=== PATIENT | male | born 1990 | race Caucasian/White ===

== ENCOUNTER → 2019-11-26 | Outpatient (CLI) | payer BC ==
--- NOTE | 2019-11-26 17:00 | CT ---
EXAMINATION TYPE: CT brain wo con DATE OF EXAM: 11/26/2019 COMPARISON: None HISTORY: dizziness, no injury CT DLP: 978.2 mGycm Automated exposure control for dose reduction was used. Ventricles and sulci appear normal. There is no mass effect nor midline shift. There is no sign of in tracranial hemorrhage. Calvarium is intact. There is no evidence of cerebral edema. IMPRESSION: Normal unenhanced head CT scan.
== END | disposition home or self-care (01) ==
LOC: RADCTMAIN 16:16
PROVIDERS: ATTEND Nurse Practitioner Family
DX: R42 Dizziness and giddiness (principal)
CPT/HCPCS: 70450

== ENCOUNTER → 2019-12-09 | Outpatient (CLI) | payer BC ==
--- NOTE | 2019-12-10 08:06 | US ---
EXAMINATION TYPE: US thyroid st tissue head/neck DATE OF EXAM: 12/09/2019 COMPARISON: NONE CLINICAL HISTORY: F45.8 Feeling of lump in throat. GLAND SIZE: Right Lobe: 4.7 x 1.6 x 1.1 cm Overall Parenchyma: homogenous Left Lobe: 4.4 x 1.7 x 1.2 cm Overall Parenchyma: homogeneous Isthmus Thickness: 0.2 cm NODULES RIGHT: # of nodules measured on right: 0 LEFT: # of nodules measured on left: 0 ISTHMUS: # of nodules measured in the isthmus: 0 Bilateral neck scanned: multiple lymph nodes are see superior to bilateral thyroid. Largest right upp er neck lymph node = 1.8 x 1.6 x 0.6cm. Largest left upper neck lymph node = 1.5 x 1.5 x 0.4cm. Homogeneous normal-sized thyroid without discrete nodules. Technologist identifies prominent bilatera l neck lymph nodes some which appear to have lost normal fatty hilum. IMPRESSION: As above. Possible abnormal adenopathy. Correlate clinically and with lab values, need to further investigate with contrast-enhanced neck CT or MRI should be based on clinical correlation.
== END | disposition home or self-care (01) ==
LOC: RADUSWWP 15:29
DX: F45.8 Other somatoform disorders (principal)
CPT/HCPCS: 76536

== ENCOUNTER → 2019-12-22 | Outpatient (CLI) | payer BC ==
--- NOTE | 2019-12-23 06:53 | CT ---
EXAMINATION TYPE: CT soft tissue neck wo/w con DATE OF EXAM: 12/22/2019 HISTORY: Cervical lymphadenopathy. Pt c/o trouble swallowing. COMPARISON: Ultrasound neck December 09, 2019 CT DLP: 845.20 mGycm. Automated Exposure Control for Dose Reduction was Utilized. TECHNIQUE: CT scan of the neck is performed without and with IV Contrast, patient injected with 100 mL of Isovue 300, axial images are obtained, coronal and sagittal reformatted images are reviewed. FINDINGS: Airway: Some secretions at level of the vallecula otherwise unremarkable. Normal-sized thyroid corres ponds to recent ultrasound. Parotid/submandibular glands: No gross abnormality seen. Carotid/Vascular Structures: No significant abnormality seen. Osseous Structures: No significant abnormalities seen. Other: The parapharyngeal fat spaces are maintained bilaterally. A few prominent lymph nodes througho ut the neck bilaterally correspond to ultrasound. For reference there is 1.1 x 0.8 cm lymph node ante rior to the carotid space posterior to submandibular gland on axial image 78 the level of hyoid bone . No definitive asymmetric greater than 1 cm adenopathy or suspicious focal mass. Patient has little fat. IMPRESSION: No obvious mass or adenopathy. Source of dysphagia not identified.
== END | disposition home or self-care (01) ==
LOC: RADCTMAIN 18:47
PROVIDERS: ATTEND Family Medicine
DX: R59.0 Localized enlarged lymph nodes (principal)
CPT/HCPCS: 70492; Q9967

== ENCOUNTER 2019-12-24 08:11 | Day surgery (SDC) | payer BC ==
[2019-12-22 12:49] VITALS: BMI 18.8
[~2019-12-24 08:11] MED LIST: LACTATED RINGERS 1,000 ML IV SCH
[2019-12-24 08:30] VITALS: TEMP 98.3
[2019-12-24] MEDS ORDERED: LIDOCAINE 1% (10MG/ML) FOR IV START INTRADERMA ONE (08:42)
[2019-12-24] MEDS ORDERED: PROPOFOL 10 MG/ML 20 ML VIAL IV ONE (09:39)
[2019-12-24] MEDS ORDERED: LIDOCAINE 1% INJ 10MG/ML (20 ML MDV) ONE (09:39)
[2019-12-24] MEDS ORDERED: MIDAZOLAM 2 MG/2 ML VIAL ONE (09:39)
--- NOTE | 2019-12-24 09:49 | P.PCN ---
Date of Procedure: 12/24/19 Procedure(s) Performed: BRIEF HISTORY: Patient is a 29-year-old, pleasant, male scheduled for an upper endoscopy for evaluation of globus sensation and intermittent dysphagia for the last 6 months duration. He was started on omeprazole 20 mg daily for a few months ago with some improvement in symptoms PROCEDURE PERFORMED: Esophagogastroduodenoscopy with biopsy. PREOPERATIVE DIAGNOSIS: Intermittent dysphagia and globus pharyngeus of 6 months duration.. IV sedation per anesthesia. PROCEDURE: After informed consent was obtained, the patient was brought into the endoscopy unit. IV sedation was administered by Anesthesia under continuous monitoring. Initially the Olympus GIF-140 video endoscope was inserted into the mouth. Esophagus intubated without any difficulty. It was gradually advanced into the stomach and duodenum and carefully examined. The bulb and the second part of the duodenum appeared normal. The scope at this time was withdrawn to the stomach, adequately insufflated with air, and upon careful examination, mucosa of the antrum had patchy areas of erythema which was biopsied. The, body, cardia and the fundus appeared normal. The scope was then withdrawn into the esophagus. Small sliding type hiatal hernia noted. The GE junction was located at 39 cm from the incisors. The esophagus appeared normal. There were no erosions or ulcerations seen , biopsies were done from the distal esophagus and the patient tolerated the procedure well. IMPRESSION: 1. Small hiatal hernia but no evidence of esophagitis or esophageal stricture. 2. Mild antral gastritis. RECOMMENDATIONS: The findings of this examination were discussed with the patient as well as his family. He was advised to follow with the biopsy results. He will continue on omeprazole 20 mg daily and follow antireflux measures.
[2019-12-24 10:11] VITALS: RESP 20
[2019-12-24 10:13] VITALS: BP 120/81; PULSE 79
== END 2019-12-24 10:26 | disposition home or self-care (01) ==
LOC: ORWHC2ENDO 08:11
PROVIDERS: ATTEND Internal Medicine Gastroenterology
DX: K29.50 Unspecified chronic gastritis without bleeding (principal); K44.9 Diaphragmatic hernia without obstruction or gangrene; K21.9 Gastro-esophageal reflux disease without esophagitis; F41.9 Anxiety disorder, unspecified; Z79.899 Other long term (current) drug therapy
CPT/HCPCS: 88305; 43239; J2250; J2001; J2704

== ENCOUNTER 2020-05-08 18:45 | Observation (INO) | payer BC, OTHER ==
--- NOTE | 2020-05-08 19:11 | ED ---
General Adult HPI - General Chief complaint: Wound/Laceration Stated complaint: arm lac Time Seen by Provider: 05/08/20 18:50 Source: patient, RN notes reviewed Mode of arrival: ambulatory Limitations: no limitations - History of Present Illness Initial comments: Patient is a pleasant 30-year-old male presenting to the emergency Department with arm laceration. Incident occurred less than half an hour prior to arrival. Patient states he was moving stuff and fell into a picture frame. Patient then experienced heavy bleeding from his right arm. Patient did call 911. Patient had bandages placed by EMS but refused treatment by EMS. Patient states his girlfriend drove him here. Last tetanus immunization was around 2012. Patient was sweaty and near syncopal on arrival. Patient states he did lose a lot of blood and there was some squirting from his arm. No other area of injury or concern. No alcohol or street drug use. Patient has history of distant drug use. - Related Data Home Medications Medication Instructions Recorded Confirmed Omeprazole 20 mg PO HS 12/22/19 12/24/19 Allergies Allergy/AdvReac Type Severity Reaction Status Date / Time No Known Allergies Allergy Verified 05/08/20 18:57 Review of Systems ROS Statement: Those systems with pertinent positive or pertinent negative responses have been documented in the HPI. ROS Other: All systems not noted in ROS Statement are negative. Constitutional: Denies: fever Eyes: Denies: eye pain ENT: Denies: ear pain Respiratory: Denies: cough Cardiovascular: Denies: chest pain Endocrine: Denies: fatigue Gastrointestinal: Denies: abdominal pain Genitourinary: Denies: dysuria Musculoskeletal: Denies: back pain Skin: Reports: as per HPI Neurological: Denies: weakness Past Medical History Past Medical History: No Reported History History of Any Multi-Drug Resistant Organisms: None Reported Past Surgical History: No Surgical Hx Reported Additional Past Surgical History / Comment(s): EGD Past Psychological History: No Psychological Hx Reported Smoking Status: Current every day smoker Past Alcohol Use History: None Reported Past Drug Use History: Marijuana General Exam Limitations: no limitations General appearance: alert Head exam: Present: atraumatic, normocephalic Eye exam: Present: normal appearance Neck exam: Present: normal inspection. Absent: tenderness Respiratory exam: Present: normal lung sounds bilaterally Cardiovascular Exam: Present: regular rate, normal rhythm Expanded Peripheral pulses: 1+: Radial (R) (Difficult to examine secondary to tourniquet), 2+: Radial (L) GI/Abdominal exam: Present: soft. Absent: tenderness Extremities exam: Present: other (Patient has tourniquet on his left upper arm, above the antecubital fossa. Patient has laceration on the volar/ulnar side of the antecubital fossa just distal to the antecubital fossa. Laceration ap proximate 1.5 cm. There is heavy oozing with mild pulsatile spray) Neurological exam: Present: alert Psychiatric exam: Present: normal affect, normal mood Skin exam: Present: diaphoretic, other (Laceration) Course Vital Signs 05/08/20 18:47 Temperature 98 F Pulse Rate 71 Respiratory 18 Rate Blood Pressure 97/73 O2 Sat by Pulse 100 Oximetry - Reevaluation(s) Reevaluation #1: 05/08/20 19:11 Case was discussed with Dr. Foy who will come in to evaluate. 19:27 Tourniquet released briefly with continued moderate to heavy bleeding. Tourniquet replaced. 05/08/20 20:11 Dr. foy is present and taking patient to or. Medical Decision Making - Medical Decision Making Patient had tourniquet applied at home. Bandages and tourniquet removed showing moderate to heavy active bleeding. Small laceration. New tourniquet placed in the emergency department. - Lab Data Result diagrams: 05/08/20 19:11 05/08/20 19:11 Lab Results 05/08/20 05/08/20 05/08/20 Range/Units 19:11 19:11 19:11 WBC 13.4 H (3.8-10.6) k/uL RBC 4.82 (4.30-5.90) m/uL Hgb 15.0 (13.0-17.5) gm/dL Hct 44.5 (39.0-53.0) % MCV 92.3 (80.0-100.0) fL MCH 31.1 (25.0-35.0) pg MCHC 33.7 (31.0-37.0) g/dL RDW 12.5 (11.5-15.5) % Plt Count 264 (150-450) k/uL MPV 8.5 Neutrophils % 51 % Lymphocytes % 39 % Monocytes % 6 % Eosinophils % 2 % Basophils % 1 % Neutrophils # 6.8 (1.3-7.7) k/uL Lymphocytes # 5.2 H (1.0-4.8) k/uL Monocytes # 0.7 (0-1.0) k/uL Eosinophils # 0.3 (0-0.7) k/uL Basophils # 0.1 (0-0.2) k/uL Manual Slide Review Performed RBC Morphology Normal PT 10.2 (9.0-12.0) sec INR 0.9 (<1.2) APTT 24.0 (22.0-30.0) sec Sodium 137 (137-145) mmol/L Potassium 3.9 (3.5-5.1) mmol/L Chloride 106 (98-107) mmol/L Carbon Dioxide 22 (22-30) mmol/L Anion Gap 9 mmol/L BUN 14 (9-20) mg/dL Creatinine 0.96 (0.66-1.25) mg/dL Est GFR (CKD-EPI)AfAm >90 (>60 ml/min/1.73 sqM) Est GFR (CKD-EPI)NonAf >90 (>60 ml/min/1.73 sqM) Glucose 147 H (74-99) mg/dL Calcium 10.0 (8.4-10.2) mg/dL Total Bilirubin 0.9 (0.2-1.3) mg/dL AST 26 (17-59) U/L ALT 17 (4-49) U/L Alkaline Phosphatase 86 (38-126) U/L Total Protein 7.7 (6.3-8.2) g/dL Albumin 4.9 (3.5-5.0) g/dL Serum Alcohol <10 mg/dL Blood Type Recheck Bld Type Recheck Status Spec Expiration Date 05/08/20 Range/Units 19:39 WBC (3.8-10.6) k/uL RBC (4.30-5.90) m/uL Hgb (13.0-17.5) gm/dL Hct (39.0-53.0) % MCV (80.0-100.0) fL MCH (25.0-35.0) pg MCHC (31.0-37.0) g/dL RDW (11.5-15.5) % Plt Count (150-450) k/uL MPV Neutrophils % % Lymphocytes % % Monocytes % % Eosinophils % % Basophils % % Neutrophils # (1.3-7.7) k/uL Lymphocytes # (1.0-4.8) k/uL Monocytes # (0-1.0) k/uL Eosinophils # (0-0.7) k/uL Basophils # (0-0.2) k/uL Manual Slide Review RBC Morphology PT (9.0-12.0) sec INR (<1.2) APTT (22.0-30.0) sec Sodium (137-145) mmol/L Potassium (3.5-5.1) mmol/L Chloride (98-107) mmol/L Carbon Dioxide (22-30) mmol/L Anion Gap mmol/L BUN (9-20) mg/dL Creatinine (0.66-1.25) mg/dL Est GFR (CKD-EPI)AfAm (>60 ml/min/1.73 sqM) Est GFR (CKD-EPI)NonAf (>60 ml/min/1.73 sqM) Glucose (74-99) mg/dL Calcium (8.4-10.2) mg/dL Total Bilirubin (0.2-1.3) mg/dL AST (17-59) U/L ALT (4-49) U/L Alkaline Phosphatase (38-126) U/L Total Protein (6.3-8.2) g/dL Albumin (3.5-5.0) g/dL Serum Alcohol mg/dL Blood Type Recheck No Previous Record Bld Type Recheck Status CABO Indicated Spec Expiration Date 05/11/20202310 Disposition Clinical Impression: Laceration of arm Disposition: ADMITTED IP TO THIS HOSP Is patient prescribed a controlled substance at d/c from ED?: No Referrals: Gato Billy MD [Primary Care Provider] - 1-2 days Decision Time: 20:12
[2020-05-08] MEDS ORDERED: DIPH,PERTUSS(ACELL),TET PED 0.5 ML SYRINGE IM ONE (19:14)
[2020-05-08] MEDS ORDERED: LIDOCAINE 1% INJ 10MG/ML (20 ML MDV) SQ ONE (19:15)
[2020-05-08 19:25] LABS: Basophils # (A) 0.1 k/uL (0-0.2); Basophils % (A) 1 %; Eosinophils # (A) 0.3 k/uL (0-0.7); Eosinophils % (A) 2 %; HCT 44.5 % (39.0-53.0); Lymphocytes # (A) 5.2 k/uL (1.0-4.8); Lymphocytes % (A) 39 %; MCH 31.1 pg (25.0-35.0); MCHC 33.7 g/dL (31.0-37.0); MCV 92.3 fL (80.0-100.0); Mean Platelet Volume 8.5; Monocytes # (A) 0.7 k/uL (0-1.0); Monocytes % (A) 6 %; Neutrophils # (A) 6.8 k/uL (1.3-7.7); Neutrophils % (A) 51 %; Platelet Count 264 k/uL (150-450); RBC 4.82 m/uL (4.30-5.90); RDW 12.5 % (11.5-15.5); WBC 13.4 k/uL (3.8-10.6)
[2020-05-08] MEDS ORDERED: DIPH,PERTUS(ACELL)TETVAC-LF 0.5 ML VIAL IM ONE (19:25)
[2020-05-08] MEDS ORDERED: SODIUM CHLORIDE 0.9% 1,000 ML IV STA (19:28)
[2020-05-08 19:41] LABS: ALT 17 U/L (4-49); AST 26 U/L (17-59); African American GFR (CKD) >90 (>60 ml/min/1.73 sqM); Albumin 4.9 g/dL (3.5-5.0); Alcohol <10 mg/dL; Alkaline Phosphatase 86 U/L (38-126); Anion Gap 9 mmol/L; Blood Urea Nitrogen 14 mg/dL (9-20); Carbon Dioxide 22 mmol/L (22-30); Chloride 106 mmol/L (98-107); Glucose 147 mg/dL (74-99); Non-African American GFR(CKD) >90 (>60 ml/min/1.73 sqM); Potassium 3.9 mmol/L (3.5-5.1); Sodium 137 mmol/L (137-145); Total Bilirubin 0.9 mg/dL (0.2-1.3); Total Protein 7.7 g/dL (6.3-8.2)
[2020-05-08 19:51] LABS: INR 0.9 (<1.2); Prothrombin Time 10.2 sec (9.0-12.0)
--- NOTE | 2020-05-08 20:09 | XR ---
RESULT: HISTORY: lac TECHNIQUE: 2 views of the right forearm were obtained. COMPARISON: None. FINDINGS: There is no acute fracture or dislocation. The visualized joint spaces are preserved. There is soft t issue wound about the medial aspect of the right proximal forearm. No radiopaque foreign body. IMPRESSION: Soft tissue wound/laceration about the right proximal forearm. No acute osseous abnormality.
[2020-05-08] MEDS ORDERED: NALOXONE 0.4 MG/ML 1 ML VIAL IV PRN ×2 (20:12→22:24)
--- NOTE | 2020-05-08 20:45 | P.GSHP ---
History of Present Illness H&P Date: 05/08/20 Chief Complaint: right forearm injury 30-year-old gentleman presented to the emergency department after a slip and fall and injury to his right forearm from what he believes was a small picture frame. He states a glass shattered onto his arm and he noticed pulsatile bleeding after that point. He states blood was all over his clothes and a puddle of blood was noticed in his house. He then called 911 and was taken to the emergency department. Upon evaluation in the emergency department per the ER physician he had pulsatile bleeding from a puncture in the medial aspect of his right forearm. They could not see where was bleeding from, and there was an expanding hematoma so they placed a tourniquet which stopped the bleeding. When he arrived to the emergency department he was moving all extremities and had sensation in his fingers and hands. Currently he states his hand is numb secondary to the tourniquet which has been on for 60 minutes. He denies any other issues at this time states that he did not have any other injuries with his fall and he did not hit his head. He denies any fevers, chills, chest pain or shortness of breath. - Review of Systems All systems: negative (What is mentioned in HPI past medical history) Past Medical History Past Medical History: No Reported History Additional Past Medical History / Comment(s): anxiety, abdominal pain History of Any Multi-Drug Resistant Organisms: None Reported Past Surgical History: No Surgical Hx Reported Additional Past Surgical History / Comment(s): EGD Past Psychological History: No Psychological Hx Reported Smoking Status: Current every day smoker Past Alcohol Use History: None Reported Past Drug Use History: Marijuana Medications and Allergies Home Medications and Allergies Comment(s): medical marijuana for anxiety and abdominal pain Home Medications Medication Instructions Recorded Confirmed Type Omeprazole 20 mg PO HS 12/22/19 12/24/19 History Allergies Allergy/AdvReac Type Severity Reaction Status Date / Time No Known Allergies Allergy Verified 05/08/20 18:57 Surgical - Exam Vital Signs Temp Pulse Resp BP Pulse Ox 98 F 71 18 97/73 100 05/08/20 18:47 05/08/20 18:47 05/08/20 18:47 05/08/20 18:47 05/08/20 18:47 Tourniquet removed and vascular exam was performed demonstrating pulsatile mass at the medial aspect of his right forearm. Positive tenderness to palpation. Hematoma is noted which according to the emergency department was expanding. Palpable radial and ulnar pulses. Good capillary refill. Sensation is intact. Motor function intact with pain. - General well developed, well nourished, moderate distress, moderate pain - Eyes PERRL, normal ocular movement - ENT normal pinna, normal nares - Neck no masses - Respiratory normal expansion, normal respiratory effort, clear to auscultation - Cardiovascular Rhythm: regular - Abdomen Abdomen: soft, non tender - Integumentary no rash, no growths - Neurologic normal coordination, normal sensation - Psychiatric oriented to time, oriented to person, oriented to place, speech is normal Results - Labs 05/08/20 19:11 05/08/20 19:11 Abnormal Lab Results - Last 24 Hours (Table) 05/08/20 05/08/20 Range/Units 19:11 19:11 WBC 13.4 H (3.8-10.6) k/uL Lymphocytes # 5.2 H (1.0-4.8) k/uL Glucose 147 H (74-99) mg/dL Diabetes panel 05/08/20 Range/Units 19:11 Sodium 137 (137-145) mmol/L Potassium 3.9 (3.5-5.1) mmol/L Chloride 106 (98-107) mmol/L Carbon Dioxide 22 (22-30) mmol/L BUN 14 (9-20) mg/dL Creatinine 0.96 (0.66-1.25) mg/dL Glucose 147 H (74-99) mg/dL Calcium 10.0 (8.4-10.2) mg/dL AST 26 (17-59) U/L ALT 17 (4-49) U/L Alkaline Phosphatase 86 (38-126) U/L Total Protein 7.7 (6.3-8.2) g/dL Albumin 4.9 (3.5-5.0) g/dL Calcium panel 05/08/20 Range/Units 19:11 Calcium 10.0 (8.4-10.2) mg/dL Albumin 4.9 (3.5-5.0) g/dL Pituitary panel 05/08/20 Range/Units 19:11 Sodium 137 (137-145) mmol/L Potassium 3.9 (3.5-5.1) mmol/L Chloride 106 (98-107) mmol/L Carbon Dioxide 22 (22-30) mmol/L BUN 14 (9-20) mg/dL Creatinine 0.96 (0.66-1.25) mg/dL Glucose 147 H (74-99) mg/dL Calcium 10.0 (8.4-10.2) mg/dL Adrenal panel 05/08/20 Range/Units 19:11 Sodium 137 (137-145) mmol/L Potassium 3.9 (3.5-5.1) mmol/L Chloride 106 (98-107) mmol/L Carbon Dioxide 22 (22-30) mmol/L BUN 14 (9-20) mg/dL Creatinine 0.96 (0.66-1.25) mg/dL Glucose 147 H (74-99) mg/dL Calcium 10.0 (8.4-10.2) mg/dL Total Bilirubin 0.9 (0.2-1.3) mg/dL AST 26 (17-59) U/L ALT 17 (4-49) U/L Alkaline Phosphatase 86 (38-126) U/L Total Protein 7.7 (6.3-8.2) g/dL Albumin 4.9 (3.5-5.0) g/dL Assessment and Plan Assessment: 1. Acute right forearm puncture with arterial injury 2. Expanding right forearm hematoma 3. Chronic abdominal pain 4. Marijuana use Plan: To OR for exploration and artery repair.
[2020-05-08] MEDS ORDERED: fentaNYL (PF) 50 MCG/ML 2 ML AMP ONE (20:50)
[2020-05-08] MEDS ORDERED: MIDAZOLAM 2 MG/2 ML VIAL ONE (20:50)
[2020-05-08] MEDS ORDERED: DEXAMETHASONE SOD PHOSPHATE 10 MG/ML 1 ML VIAL ONE (20:50)
[2020-05-08] MEDS ORDERED: PROPOFOL 10 MG/ML 20 ML VIAL IV ONE (20:50)
[2020-05-08] MEDS ORDERED: LIDOCAINE 1% INJ 10MG/ML (20 ML MDV) ONE (20:50)
[2020-05-08] MEDS ORDERED: ONDANSETRON 4 MG/2 ML VIAL ONE (20:50)
[2020-05-08] MEDS ORDERED: LACTATED RINGERS 1,000 ML IV ONE (20:56)
[2020-05-08] MEDS ORDERED: SODIUM CHLORIDE 0.9% 50 ML with ceFAZolin 2,000 MG IV ONE ×2 (21:09)
[2020-05-08 22:11] VITALS: RESP 16
[2020-05-08] MEDS ORDERED: HYDROmorphone 0.5 MG/0.5 ML SYRINGE IVP ONE (22:19)
--- NOTE | 2020-05-08 22:22 | P.OP ---
Date of Procedure: 05/08/20 Preoperative Diagnosis: Traumatic laceration right medial forearm Expanding hematoma with arterial injury Postoperative Diagnosis: Traumatic left forearm laceration with muscular arterial hemorrhage Procedure(s) Performed: Right forearm laceration exploration with ligation of muscular arterial branch Hematoma evacuation Wound closure with [place] drain placement Anesthesia: GOOD Surgeon: Esteban Argueta Estimated Blood Loss (ml): 100 Pathology: none sent Condition: stable Disposition: PACU Indications for Procedure: 30-year-old gentleman who presented originally to the emergency department secondary to traumatic injury to his right forearm where he states he fell at his house and a picture glass frame broke and lacerated his forearm. Upon evaluation in the emergency department he had an expanding hematoma and arterial hemorrhage which was controlled with a tourniquet. After evaluation it was determined to explore the wound for possible arterial injury repair. Operative Findings: Medial flexor musculature laceration with arterial bleeding. Brachial artery and radial, ulnar arteries were intact without any signs of injury. Brachial vein was intact without injury. Description of Procedure: After written informed consent was obtained the patient all risks benefits competitions were described the patient is brought to the operative suite and laid in the supine position with the right arm placed on an armboard. The arm was prepped and draped in usual sterile fashion after appropriate anesthetic was performed per the anesthesiologist. Timeout was performed in normal fashion and antibiotics were administered prior to incision. The transverse puncture site was extended with a 15 blade scalpel. Hematoma was evacuated from the forearm which extended up towards the biceps. Once hematoma was evacuated pulsatile blood flow was noted and attempt to control this failed without placement of a tourniquet. Tourniquet was placed for hemostasis. Hemostasis was assured and expiration of the forearm wound was then performed. The brachial artery, ulnar artery and radial artery were located and dissection was performed around these areas without any evidence of injury or bleeding. Tourniquet was then released and pulsatile blood flow was visualized coming from the medial flexor musculature. There was a large branch within the middle of the muscle that had been lacerated. This was then grasped and suture ligated. The distal and of the vessel was also located in the musculature that had been lacerated and this vessel was also suture ligated. After ligation patient had palpable radial and ulnar pulses. The wound was copiously irrigated with hydrogen peroxide and saline. No active bleeding was noted. There was some minimal oozing from the lacerated musculature and therefore a Robin drain was placed within the wound bed. The skin was then approximated with 3-0 nylon suture in a vertical mattress fashion. Skin was then cleansed and the wound was dressed with 4 x 4, ABDs and Kerlix. Patient all procedure well and had a palpable radial and ulnar pulse at the conclusion of the procedure.
[2020-05-08] MEDS ORDERED: HYDROcodone/APAP 5-325MG 1 EACH TAB PO PRN (22:24)
[2020-05-08] MEDS ORDERED: ASPIRIN 81 MG PO PRN (22:33)
[2020-05-08] MEDS: SODIUM CHLORIDE 0.9% 1,000 ML IV SCH (23:01)
[2020-05-08] MEDS: MORPHINE SULFATE 4 MG/ML SYRINGE IV PRN (23:35)
[2020-05-09] MEDS: MORPHINE SULFATE 4 MG/ML SYRINGE IV PRN (05:56)
[2020-05-09 07:44] VITALS: BP 123/72; PULSE 69; TEMP 98.1
[2020-05-09] MEDS ORDERED: ONDANSETRON 4 MG/2 ML VIAL IVP PRN (08:05)
[2020-05-09] MEDS ORDERED: PANTOPRAZOLE 40 MG/10 ML VIAL IVP SCH (09:00)
--- NOTE | 2020-05-09 10:33 | P.PN ---
Subjective Progress Note Date: 05/09/20 Principal diagnosis: Laceration to right arm Patient is seen and examined lying in bed. He is status postop day # 1 for Right forearm laceration exploration with ligation of muscular arterial branch, Hematoma evacuation, and Wound closure with Robin drain placement He states he has minimal pain, he is not requiring any more IV morphine. He did have some nausea this morning for which Zofran was ordered. He has full range of motion of the right upper extremity, is able to move his fingers without any difficulty. He denies any numbness or tingling. He has a dressing on that is clean dry and intact with some old blood noted. Objective - Vital Signs Vital signs: Vital Signs Temp 98.1 F 05/09/20 07:43 Pulse 69 05/09/20 07:43 Resp 16 05/09/20 07:43 BP 123/72 05/09/20 07:43 Pulse Ox 98 05/09/20 07:43 Intake & Output 05/08/20 05/09/20 05/09/20 18:59 06:59 18:59 Intake Total 750 Output Total 400 Balance 350 Weight 61.235 kg 61.235 kg Intake: IV 750 Output: Urine 300 Estimated Blood Loss 100 Other: # Voids 3 - Exam General appearance: The patient is alert, oriented, in no acute distress. HET: Head is normocephalic and atraumatic. Neck: Supple without lymphadenopathy. Trachea midline. Extremities: Normal skin color and turgor. Right upper extremity with full range of motion, patient able to wiggle his fingers. Good capillary refill and warm to the touch. Dressing is clean dry and intact, with some old blood noted. Appears to have some mild swelling in that right upper extremity near the elbow. Neurological: No focal deficits. Strength and sensation are grossly intact. - Labs CBC & Chem 7: 05/08/20 19:11 05/08/20 19:11 Labs: Abnormal Lab Results - Last 24 Hours (Table) 05/08/20 05/08/20 Range/Units 19:11 19:11 WBC 13.4 H (3.8-10.6) k/uL Lymphocytes # 5.2 H (1.0-4.8) k/uL Glucose 147 H (74-99) mg/dL Assessment and Plan Assessment: 1. Postop day #1 for Right forearm laceration exploration with ligation of muscular arterial branch, Hematoma evacuation, Wound closure with Robin drain placement 2. Acute right forearm puncture with arterial injury 3. Expanding right forearm hematoma 4. Chronic abdominal pain 5. Marijuana use Plan: 1. Supportive care 2. Continue oral pain medications as needed 3. IV Zofran ordered for nausea 4. Diet as tolerated 5. Daily dressing change 6. Further recommendations to follow The impression and plan of care has been dictated as directed. I performed a history and examination of this patient, discussed the same with the dictator. I agree with the dictator's note ,documented as a scribe. Any additional findings or plans will be noted.
[2020-05-09] MEDS: SODIUM CHLORIDE 0.9% 1,000 ML IV SCH (11:10)
[2020-05-09 11:23] LABS: Basophils # (A) 0.03 X 10*3/uL (0.00-0.10); Basophils % (A) 0.2 %; Eosinophils # (A) 0 X 10*3/uL (0.04-0.35); Eosinophils % (A) 0 %; HGB 12.5 g/dL (13.0-17.0); Lymphocytes # (A) 1.57 X 10*3/uL (0.90-5.00); Lymphocytes % (A) 10.7 %; MCH 30.9 pg (27.0-32.0); MCHC 33.8 g/dL (32.0-37.0); MCV 91.6 fL (80.0-97.0); Mean Platelet Volume 11.3 fL (9.5-12.2); Monocytes # (A) 0.33 X 10*3/uL (0.20-1.00); Monocytes % (A) 2.2 %; Neutrophils # (A) 12.69 X 10*3/uL (1.80-7.70); Neutrophils % (A) 86.3 %; Platelet Count 242 X 10*3/uL (140-440); RBC 4.04 X 10*6/uL (4.40-5.60); RDW 12.7 % (11.5-14.5); WBC 14.71 X 10*3/uL (4.50-10.00)
[2020-05-09 11:36] LABS: Anion Gap 7.1 mmol/L (4.00-12.00); Calcium 8.9 mg/dL (8.7-10.3); Carbon Dioxide 22.9 mmol/L (21.6-31.8); Potassium 4.6 mmol/L (3.5-5.5)
--- NOTE | 2020-05-09 15:12 | P.DS ---
Providers Date of admission: 05/08/20 20:12 Attending physician: Esteban Argueta DO Primary care physician: Gato Billy MD Hospital Course: Sit 30-year-old gentleman who presented to the emergency department yesterday after slipping and falling injury to his right forearm for which he believes he punctured with a piece of glass from the picture frame. Once evaluated in the emergency room he did have pulsatile bleeding from the right forearm and a tourniquet was placed. Vascular surgery was consult today and the patient was taken for surgery by yesterday. The patient underwent a right forearm laceration exploration with ligation of muscular arterial branch, hematoma evacuation, and wound closure with [place] drain placement. Assessment: Patient is seen and examined lying in bed. He is status postop day # 1 for Right forearm laceration exploration with ligation of muscular arterial branch, Hematoma evacuation, and Wound closure with [place] drain placement He states he has minimal pain, he is not requiring any more IV morphine. He did have some nausea this morning for which Zofran was ordered. He has full range of motion of the right upper extremity, is able to move his fingers without any difficulty. He denies any numbness or tingling. He has a dressing on that is clean dry and intact with some old blood noted. General appearance: The patient is alert, oriented, in no acute distress. HET: Head is normocephalic and atraumatic. Neck: Supple without lymphadenopathy. Trachea midline. Extremities: Normal skin color and turgor. Right upper extremity with full range of motion, patient able to wiggle his fingers. Good capillary refill and warm to the touch. Dressing is clean dry and intact, with some old blood noted. Appears to have some mild swelling in that right upper extremity near the el bow. Neurological: No focal deficits. Strength and sensation are grossly intact. Assessment: 1. Postop day #1 for Right forearm laceration exploration with ligation of mu scular arterial branch, Hematoma evacuation, Wound closure with [place] drain placement 2. Acute right forearm puncture with arterial injury 3. Expanding right forearm hematoma 4. Chronic abdominal pain 5. Marijuana use Plan: 1. Supportive care 2. Continue oral pain medications as needed 3. IV Zofran ordered for nausea 4. Diet as tolerated 5. Daily dressing change 6. Keflex 250 mg by mouth every 6 hours 7 days discharge prescription Patient may be discharged home follow-up with Dr. Argueta in 1 week The impression and plan of care has been dictated as directed. I performed a history and examination of this patient, discussed the same with the dictator. I agree with the dictator's note ,documented as a scribe. Any a dditional findings or plans will be noted. Procedures: 05/08/2020 patient underwent right forearm laceration exploration with ligation of muscular arterial branch, hematoma evacuation, and wound closure with [place] drain placement. Patient Condition at Discharge: Good Plan - Discharge Summary New Discharge Prescriptions: New HYDROcodone/APAP 5-325MG [[place] 5-325] 1 each PO Q6HR PRN 3 Days #12 tab PRN Reason: Moderate Pain Cephalexin [Keflex] 250 mg PO Q6HR 7 Days #28 cap Continue Aspirin EC [Ecotrin Low Dose] 243 mg PO DAILY PRN PRN Reason: Headache Discharge Medication List Aspirin EC [Ecotrin Low Dose] 243 mg PO DAILY PRN 05/08/20 [History] Cephalexin [Keflex] 250 mg PO Q6HR 7 Days #28 cap 05/09/20 [Rx] HYDROcodone/APAP 5-325MG [[place] 5-325] 1 each PO Q6HR PRN 3 Days #12 tab 05/09/20 [Rx] Follow up Appointment(s)/Referral(s): Esteban Argueta DO [STAFF PHYSICIAN] - 1 Week Gato Billy MD [Primary Care Provider] - 1-2 days Activity/Diet/Wound Care/Special Instructions: Keep right upper extremity dry. 4x4 dressing with Kerlix wrap daily. [place] drain intact until follow-up appointment. Call office with any fever greater than 100.4, abnormal redness or drainage from incision site. Discharge Disposition: HOME SELF-CARE
[2020-05-09 15:48] VITALS: BMI 18.8
[2020-05-10] MEDS ORDERED: PANTOPRAZOLE 40 MG TABLET PO SCH (07:30)
== END 2020-05-09 17:05 | disposition home or self-care (01) ==
LOC: EC 18:45 → INTOOBSV 20:12 → 4SSUR 20:12 → UNDODISIN 05-09 16:04
PROVIDERS: ADMIT Surgery; ATTEND Surgery
PROC: 0K990ZZ Drainage of Right Lower Arm and Wrist Muscle, Open Approach (ICD-10-PCS; 2020-05-08)
PROC: 03LY0ZZ Occlusion of Upper Artery, Open Approach (ICD-10-PCS; principal; 2020-05-08 21:00)
DX: S55.911A Laceration of unspecified blood vessel at forearm level, right arm, initial encounter (principal); S51.811A Laceration without foreign body of right forearm, initial encounter; G89.29 Other chronic pain; R10.9 Unspecified abdominal pain; F41.9 Anxiety disorder, unspecified; Y92.009 Unspecified place in unspecified non-institutional (private) residence as the place of occurrence of the external cause; W01.110A Fall on same level from slipping, tripping and stumbling with subsequent striking against sharp glass, initial encounter; F17.200 Nicotine dependence, unspecified, uncomplicated; Z20.822 Contact with and (suspected) exposure to COVID-19; Z79.899 Other long term (current) drug therapy
CPT/HCPCS: 35206; 37799; 90471; 96372; 99284; 86900; 86901; 80053; 80048; 85025 ×2; 85610; 85730; 86850; 80320; 87635; 73090; 90715; G0378 ×2; J2250; J2270 ×2; J1100; J2405 ×2; J0690; J2001; J3010; J2704; C9113; J1170; 96365

== ENCOUNTER 2020-05-29 22:48 | Emergency (ER) | payer BC, OTHER ==
[2020-05-29 22:56] VITALS: BP 143/87; PULSE 112; RESP 20; TEMP 97.7
[2020-05-29] MEDS ORDERED: LORazepam 1 MG TAB PO STA (23:21)
--- NOTE | 2020-05-29 23:25 | ED ---
Anxiety HPI - General Chief Complaint: Anxiety Stated Complaint: Mental health Time Seen by Provider: 05/29/20 23:03 Source: patient, RN notes reviewed Mode of arrival: ambulatory - History of Present Illness Initial Comments: Patient is a 30-year-old male that presents to emergency department with anxiety. He notes that he has been taking Xanax 0.25 mg daily sometimes more th an once the last week approximate. He notes that he is having some life stressors at home and having issues with family. He notes that he took his last Xanax today and wasn't sure if he isn't go to make the night without having a panic attack. He denied any chest pain shortness of breath headache nausea vomiting diarrhea constipation fever fatigue chills. - Related Data Home Medications: Home Medications Medication Instructions Recorded Confirmed Aspirin EC [Ecotrin Low Dose] 162 mg PO DAILY PRN 05/08/20 05/29/20 Allergies/Adverse Reactions: Allergies Allergy/AdvReac Type Severity Reaction Status Date / Time No Known Allergies Allergy Verified 05/29/20 22:56 Review of Systems ROS Statement: Those systems with pertinent positive or pertinent negative responses have been documented in the HPI. ROS Other: All systems not noted in ROS Statement are negative. Past Medical History Past Medical History: No Reported History Additional Past Medical History / Comment(s): anxiety, abdominal pain History of Any Multi-Drug Resistant Organisms: None Reported Past Surgical History: No Surgical Hx Reported Additional Past Surgical History / Comment(s): EGD Past Anesthesia/Blood Transfusion Reactions: No Reported Reaction Past Psychological History: Anxiety Smoking Status: Current every day smoker Past Alcohol Use History: None Reported Past Drug Use History: Marijuana General Exam Limitations: no limitations General appearance: alert, in no apparent distress, anxious Head exam: Present: atraumatic, normocephalic, normal inspection Eye exam: Present: normal appearance, PERRL, EOMI. Absent: scleral icterus, conjunctival injection, periorbital swelling ENT exam: Present: normal exam, mucous membranes moist Neck exam: Present: normal inspection. Absent: tenderness, meningismus, lymphadenopathy Respiratory exam: Present: normal lung sounds bilaterally. Absent: respiratory distress, wheezes, rales, rhonchi, stridor Cardiovascular Exam: Present: regular rate, normal rhythm, normal heart sounds. Absent: systolic murmur, diastolic murmur, rubs, gallop, clicks GI/Abdominal exam: Present: soft, normal bowel sounds. Absent: distended, tenderness, guarding, rebound, rigid Extremities exam: Present: normal inspection, full ROM, normal capillary refill. Absent: tenderness, pedal edema, joint swelling, calf tenderness Neurological exam: Present: alert, oriented X3, CN II-XII intact Psychiatric exam: Present: normal affect, normal mood Skin exam: Present: warm, dry, intact, normal color. Absent: rash Course Vital Signs 05/29/20 22:52 Temperature 97.7 F Pulse Rate 112 H Respiratory 20 Rate Blood Pressure 143/87 O2 Sat by Pulse 100 Oximetry Medical Decision Making - Medical Decision Making 30-year-old male complaining of anxiety, and running out of his Xanax prescription. 1 mg of Ativan ordered. Case discussed with Dr. Caruso, patient can discharge home with follow-up primary care to refill prescription. Disposition Clinical Impression: Acute anxiety Disposition: HOME SELF-CARE Condition: Stable Instructions (If sedation given, give patient instructions): Generalized Anxiety Disorder (ED) Additional Instructions: Please return to the Emergency Department if symptoms worsen or any other concerns. Follow-up with primary care as it is possible. Also try to follow up with community mental health. Try to refill prescription and get put on a long-term antianxiety medication. Is patient prescribed a controlled substance at d/c from ED?: No Referrals: Gato Billy MD [REFERRING] - 1-2 days Scott Hernandez DO [REFERRING] - 1-2 days Time of Disposition: 23:39
== END 2020-05-29 23:58 | disposition home or self-care (01) ==
LOC: EC 22:48
DX: F41.9 Anxiety disorder, unspecified (principal); F17.200 Nicotine dependence, unspecified, uncomplicated; F12.90 Cannabis use, unspecified, uncomplicated
CPT/HCPCS: 99283